=== PATIENT | female | born 1940 | race Caucasian/White ===

== ENCOUNTER 2016-10-11 12:10 | Emergency (ER) | payer MEDICARE, OTHER ==
[~2016-10-11] VITALS: Ht 157.5 cm; Wt 75.1 kg
[2016-10-11] MEDS ORDERED: OMEP40CA2 (12:20)
[2016-10-11] MEDS ORDERED: NAPR500T PO (13:36)
[2016-10-11] MEDS ORDERED: LIDOCAINE 2% MDV 20 ML VIAL SC ONE (13:45)
[2016-10-11 14:17] VITALS: BP 151/84
--- NOTE | 2016-10-12 12:50 | REP ---
Left foot series: Four views. History: Trauma. Findings: Four views of the left foot demonstrate mild diffuse osteopenia. No fracture or subluxation is seen. Impression: No fracture noted. Signed by Zach Candelario MD 10/12/2016 03:01 P
== END 2016-10-11 14:35 | disposition home or self-care (01) ==
LOC: M ED 12:10
DX: S91.102A Unspecified open wound of left great toe without damage to nail, initial encounter (principal); W01.198A Fall on same level from slipping, tripping and stumbling with subsequent striking against other object, initial encounter; Y92.89 Other specified places as the place of occurrence of the external cause; Y93.89 Activity, other specified; Y99.8 Other external cause status; Z79.899 Other long term (current) drug therapy

== ENCOUNTER → 2025-01-04 | Outpatient (CLI) | payer MEDICARE, OTHER ==
[~2025-01-04] MED LIST: NAPR-837 PO; OMEP40CA4
== END ==
LOC: M PLAIMG 13:30
PROVIDERS: ATTEND Nurse Practitioner Family
DX: I10 Essential (primary) hypertension (principal)